=== PATIENT | male | born 1995 | race Caucasian/White ===

== ENCOUNTER 2017-02-25 15:17 | Day surgery (SDC) | payer OTHER ==
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
[~2017-02-25] VITALS: Ht 180.3 cm; Wt 68.3 kg
[~2017-02-25 15:17] MED LIST: ATROPINE SULFATE 0.1 MG/ML 5ML SYR IV PRN; EpHEDrine SULFATE INJ 50 MG/ML AMP IV PRN; FENTANYL CITRATE INJ 50 MCG/1 ML 2 ML VIAL IV PRN; HYDROmorphone INJ 1 MG/ML SYR IV PRN; LACTATED RINGER'S 1000ML 1,000 ML IV SCH; ONDANSETRON INJ 2 MG/ML 2 ML VIAL IV PRN
[2017-02-25 15:52] VITALS: BP 132/58; PULSE 66; TEMP 36.8; O2SAT 99; Ht 180.3 cm; Wt 68.3 kg
[2017-02-25] MEDS ORDERED: NURSING VERBAL MED ORDER ONE (16:30)
[2017-02-25] MEDS ORDERED: CEFAZOLIN IV 2,000 MG/60 ML D5W IV ONE (16:30)
[2017-02-25] MEDS ORDERED: MIDAZOLAM HCL 1 MG/ML 2ML VIAL ONE (16:48)
[2017-02-25] MEDS ORDERED: ROPIVACAINE 0.5% 5 MG/ML 30 ML VIAL ONE (17:04)
--- NOTE | 2017-02-25 17:55 | History & Physical Bridge Note ---
H&P Re-Evaluation Bridge Note: I have examined the patient, reviewed the History & Physical and in the interval since the performance of the History & Physical I have noted the following changes of clinical significance: No changes noted
[2017-02-25] MEDS ORDERED: BUPIVACAINE 0.5 % 5 MG/1 ML MPF 30ML VIAL ONE (18:28)
[2017-02-25] MEDS ORDERED: FENTANYL CITRATE INJ 50 MCG/1 ML 2 ML VIAL ONE ×3 (18:45→20:42)
[2017-02-25] MEDS ORDERED: PROPOFOL IV EMULSION 10 MG/ML 20 ML VIAL IV ONE (19:02)
[2017-02-25] MEDS ORDERED: DEXAMETHASONE SOD INJ 4 MG/ML VIAL ONE (19:03)
[2017-02-25] MEDS ORDERED: ONDANSETRON INJ 2 MG/ML 2 ML VIAL ONE ×2 (19:03→21:16)
[2017-02-25] MEDS ORDERED: PERCOCET HOME PACK PO ONE (19:15)
--- NOTE | 2017-02-25 20:14 | DIAGNOSTIC IMAGING REPORT ---
RIGHT ANKLE 2 VIEWS HISTORY: 21 years-old Male RT ORIF ANKLE Right COMPARISON: None available TECHNIQUE: 3 spot fluoroscopic images of the right ankle were obtained utilizing 30.8 seconds of fluoroscopy time. FINDINGS: There has been ORIF with lateral plate and screw hardware involving the distal fibula. Additionally, there is a single screw extending anterior to posterior within the distal fibular shaft at the level of the tibial plafond. Alignment is satisfactory. Expected postsurgical soft tissue swelling is seen laterally. IMPRESSION: Status post ORIF of the distal fibula with satisfactory alignment. The above report was generated using voice recognition software. It may contain grammatical, syntax or spelling errors. Electronically signed by: Johnny Andrews M.D. 02/25/2017 8:13 PM Dictated Date/Time: 02/25/2017 8:11 PM
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
--- NOTE | 2017-02-25 20:46 | Discharge Instructions ---
Discharge Instructions Date of Service Feb 25, 2017. Visit Reason for Visit: Displaced Fracture Of Lateral Malleolus Of R Fibul Discharge Discharge Diagnosis / Problem: Right ORIF distal fibula fracture Discharge Goals Goal(s): Decrease discomfort, Improve function, Increase independence Activity Recommendations Activity Limitations: per Instructions/Follow-up section ACTIVITY RECOMMENDATIONS: Limitations: No weight bearing to affected limb at all times. SPECIAL CARE INSTRUCTIONS: * Some drainage onto the dressing is normal and is no cause for alarm. * Some swelling is natural especially after walking. * When resting, keep your foot elevated above the level of your heart. * Call [facility] if you notice: -Increased drainage -Fever over 101 degrees F -Severe constant pain BANDAGE: * Leave bandage/cast in place unless otherwise directed. * Keep bandage/cast dry at all times. FOLLOW UP VISIT WITH DR. GONZALEZ If appointment is not already scheduled: Please call [facility] after you get home today to schedule a follow-up appointment for [address] Gonzalez at . Anesthesia . Post Anesthesia Instructions: If you have had General Anesthesia or IV Sedation: * Do not drive today. * Resume driving when surgeon permits. * Do not make important decisions or sign legal documents today. * Call surgeon for: 1. Temperature elevations greater than 101 degrees F. 2. Uncontrollable pain. 3. Excessive bleeding. 4. Persistent nausea and vomiting. 5. Medication intolerance (nausea, vomiting or rash). * For nausea and vomiting use only clear liquids such as: tea, soda, bouillon until nausea subsides, then gradually increase diet as tolerated. * If you have any concerns or questions, call your surgeon's office. If physician is unavailable and it is an emergency, call [phone] or go to the nearest emergency room. . Instructions / Follow-Up Instructions / Follow-Up F/U in 10-[address] Gonzalez or Leobardo Suarez PA-C at [facility]. Call [phone] for an appt. Diet Recommendations Recommended Home Diet: resume previous diet Procedures Procedures Performed: Right Open Reduction Internal Fixation Displaced Lateral Malleolus Fracture Pending Studies Studies pending at discharge: no Medical Emergencies . Who to Call and When: Medical Emergencies: If at any time you feel your situation is an emergency, please call [phone] immediately. . Non-Emergent Contact Non-Emergency issues call your: Primary Care Provider . . "Provider Documentation" section prepared by Lori Galvan. . [place] Drug Monitoring Program Search Results: patient reviewed within database, no issues identified
--- NOTE | 2017-02-25 20:52 | Anesthesiology Progress Note ---
Anesthesia Post Op Note Date & Time Feb 25, 2017 at 20:52 Vital Signs Pain Intensity: 4 Vital Signs Past 12 Hours Date Time Temp Pulse Resp B/P (MAP) Pulse Ox O2 Delivery O2 Flow Rate FiO2 02/25/17 17:35 60 16 114/57 (76) 99 Oxymask 8 02/25/17 15:52 36.8 66 18 132/58 (82) 99 Room Air Notes Mental Status: alert / awake / arousable, participated in evaluation Pt Amnestic to Procedure: Yes Nausea / Vomiting: adequately controlled Pain: adequately controlled Airway Patency, RR, SpO2: stable & adequate BP & HR: stable & adequate Hydration State: stable & adequate Anesthetic Complications: no major complications apparent
[2017-02-25 21:15] VITALS: BP 127/67; PULSE 89; TEMP 36.1; O2SAT 100
[2017-02-25 21:25] VITALS: BP 134/82; PULSE 74; TEMP 36.3; O2SAT 100
--- NOTE | 2017-02-25 22:04 | DIAGNOSTIC IMAGING REPORT ---
RIGHT ANKLE 2 VIEWS HISTORY: 21 years-old Male postoperative exam status post ORIF. COMPARISON: Right ankle spot fluoroscopic radiographs 02/25/2017 TECHNIQUE: AP and lateral views of the right ankle FINDINGS: Patient is status post ORIF with lateral plate and screw hardware of the distal fibula fixating an oblique fracture of the fibular tip. Additionally, cannulated screw is seen traversing anterior to posterior in the distal fibula just superior to the tibial plafond. Alignment is satisfactory. Fine bony detail is obscured by overlying casting material. No acute bony fracture, dislocation or significant degenerative changes. IMPRESSION: Status post ORIF of the distal fibula with satisfactory alignment. The above report was generated using voice recognition software. It may contain grammatical, syntax or spelling errors. Electronically signed by: Johnny Andrews M.D. 02/25/2017 10:03 PM Dictated Date/Time: 02/25/2017 10:01 PM
== END 2017-02-25 22:05 | disposition home or self-care (01) ==
LOC: C.ACU 15:17
PROVIDERS: ATTEND Orthopaedic Surgery Sports Medicine
DX: S82.61XA Displaced fracture of lateral malleolus of right fibula, initial encounter for closed fracture (principal); V19.88XA Pedal cyclist (driver) (passenger) injured in other specified transport accidents, initial encounter; Y92.098 Other place in other non-institutional residence as the place of occurrence of the external cause